=== PATIENT | female | born 1985 | race Caucasian/White ===

== ENCOUNTER → 2024-12-01 | Outpatient (BNVA) | payer MEDICARE, MEDICAID, SELFPAY | END | disposition home or self-care (01) | PROVIDERS: PCP Nurse Practitioner Family; Referring Provider Nurse Practitioner Family; Visit Provider Urology | DX: G89.4 Chronic pain syndrome (principal); N39.3 Stress incontinence (female) (male); R35.0 Frequency of micturition; R30.0 Dysuria | CPT/HCPCS: 81003; 99212; G0463 ==

== ENCOUNTER 2024-12-02 10:31 | Emergency (ER) | payer MEDICARE, MEDICAID, SELFPAY ==
[2024-12-02 10:32] VITALS: BMI 32.6
[2024-12-02 10:56] VITALS: BP 135/91; PULSE 97; RESP 20; TEMP 36.4; O2SAT 97; BMI 32.6
--- NOTE | 2024-12-02 10:57 | XR_ITS ---
Examination: PA lateral chest 2 views TECHNIQUE: Upright PA lateral chest 2 views Exam date and time: December 02, 2024 1132 hours INDICATIONS: Chest pain and cardiac palpitations beginning 2 days ago. FINDINGS: Normal heart size. Lungs are clear. Mild osteopenia IMPRESSION: No active disease
--- NOTE | 2024-12-02 10:57 | EKG_ITS ---
[facility] Test Date: 2024-12-02 Pat Name: GRADY LEO Department: Room: - Gender: Female Employee Development Manager: : 1985 Requested By: Ivan Herring Order Number: [id number] Reading MD: Ivan Herring Measurements Intervals [place] Rate: 95 P: 55 FL: 124 QRS: 44 QRSD: 88 T: 34 QT: 341 QTc: 429 Interpretive Statements SINUS RHYTHM NONSPECIFIC T-WAVE ABNORMALITY Compared to ECG 10/04/2023 09:14:52 T-wave abnormality now present Sinus bradycardia no longer present Sinus arrhythmia no longer present Short FL interval no longer present /store/S0/[id number]/ecg/[id number].pdf
--- NOTE | 2024-12-02 10:57 | PD.EDRME ---
Rapid Medical Screening Exam E Arrival date/time: 12/02/24 10:31 39-year-old female with a history of anxiety presents to the emergency room with a chief complaint of palpitations and 6 out of 10 sternal chest tightness x 1 day. I have greeted and performed a focused initial assessment of this patient. A comprehensive ED assessment and evaluation of the patient, analysis of all test results, and completion of the medical decision making process will be conducted by additional ED providers. Chief Complaint: Arrhythmia/Palpitations Vital signs: Vital Signs Temperature 97.6 F 12/02/24 10:56 Pulse Rate 97 12/02/24 10:56 Respiratory Rate 20 12/02/24 10:56 Blood Pressure 135/91 H 12/02/24 10:56 Pulse Oximetry (%) 97 12/02/24 10:56 Oxygen Delivery Method Room Air 12/02/24 10:56 Vital signs reviewed by provider: Yes
[2024-12-02 11:26] LABS: Basophils # (Auto) 0.1 Thou/mm3 (0.0-0.2); Basophils % (Auto) 0 % (0-2.5); Eosinophils # (Auto) 0.3 Thou/mm3 (0.0-0.5); Eosinophils % (Auto) 2 % (0-10); Hematocrit 46.2 % (36.0-46.0); Immature Granulocytes % (Auto) 0 % (0-0); Immature Granulocytes Auto 0.03 Thou/mm3 (0.00-0.00); Lymphocytes # (Auto) 4.2 Thou/mm3 (1.0-4.8); Lymphocytes % (Auto) 29 % (10-50); Mean Corpuscular HGB Conc 34.6 g/dl (31.0-37.0); Mean Corpuscular Hemoglobin 29.6 pg (25.0-35.0); Mean Corpuscular Volume 85 fL (80-100); Monocytes # (Auto) 1.3 Thou/mm3 (0.0-0.8); Monocytes % (Auto) 9 % (0-12); Neutrophils # (Auto) 8.5 Thou/mm3 (1.8-7.7); Neutrophils % (Auto) 59 % (37-80); Nucleated Red Blood Cell % 0 /100 WBC (0); Platelet Count 280 Thou/mm3 (140-440); RDW Standard Deviation 37.2 fL (36.4-46.3); Red Blood Count 5.41 Miln/mm3 (4.00-5.20); White Blood Count 14.4 Thou/mm3 (3.6-11.0)
[2024-12-02 11:44] LABS: Collection Type, Urine Clean Catch
[2024-12-02 11:48] LABS: Bilirubin,Urine Negative (Negative); Blood,Urine Negative (Negative); Clarity,Urine Clear (Clear/Hazy); Color,Urine Lt-Yellow (Lt Yel-Yel); Glucose, Urine Negative (Negative); Ketones,Urine Negative (Negative); Leukocyte Esterase,Urine Negative (Negative); Nitrite,Urine Negative (Negative); Protein,Urine Negative (Neg - Trace); RBC,Urine < 1 /hpf (0-3); Specific Gravity,Urine 1.011 (1.001-1.035); Squamous Epithelial Cell,Urine < 1 /hpf (0-5); Urobilinogen,Urine Negative mg/dL (0.0-1.0); WBC,Urine 1 /hpf (0-5)
[2024-12-02 11:49] LABS: Alanine Aminotransferase 22 U/L (10-49); Albumin, Serum 4.5 gm/dL (3.5-5.0); Albumin/Globulin Ratio 1.6 (1.2-2.2); Alkaline Phosphatase 102 U/L (46-116); Anion Gap 10 (7-16); Aspartate Amino Transferase 17 U/L (0-34); BUN/Creatinine Ratio 12 Ratio (12-20); Bilirubin,Total 0.5 mg/dL (0.3-1.2); Blood Urea Nitrogen 11 mg/dL (9-23); Calcium 9.4 mg/dL (8.3-10.6); Calcium (Corrected) 9.4 mg/dL (8.5-10.1); Carbon Dioxide 24.5 mMol/L (20.0-31.0); Chloride 104 mMol/L (98-107); Creatinine (Component) 0.9 mg/dL (0.6-1.3); Estimated Creatinine Clearance 102.5 mL/min (>60); Globulin 2.8 gm/dL (2.3-3.5); Glucose 114 mg/dL (74-106); Magnesium 1.9 mg/dL (1.6-2.6); Osmolality,Calculated 276 (275-295); Potassium 3.8 mMol/L (3.4-5.1); Sodium 138 mMol/L (136-145); Total Protein 7.3 gm/dL (5.7-8.2); Troponin I < 0.002 ng/mL (0.0-0.045); eGFR > 60 See Note
[2024-12-02 12:02] LABS: B-Type Natriuretic Peptide < 20 pg/mL (0-100)
[2024-12-02 12:02] LABS: Amphetamine/Methamp Scrn,U Negative (Negative); Barbiturate Screen,Urine Negative (Negative); Benzodiazepines Screen,Urine Negative (Negative); Benzoylecgonine Screen, Ur Negative (Negative); Fentanyl Screen,Urine Negative (Negative); Opiate Screen,Urine Positive (Negative); THC Screen,Urine Positive (Negative)
--- NOTE | 2024-12-02 14:38 | PD.EDADULT ---
ED General RME/HPI General Chief complaint: Arrhythmia/Palpitations Stated complaint: HEART POUNDING Time Seen by Provider: 12/02/24 13:56 Arrival date/time: 12/02/24 10:31 RME / HPI RME / HPI narrative: 39-year-old female patient with significant history of migraine headache, came in for evaluation regarding heart pounding. Patient's been having chest pain, palpitation, and described as heart pounding for the last 2 days, it comes and goes, severity mild. Patient denies any cough denies any shortness of breath denies any fever denies any other complaints. No medication was taken prior to arrival Related Data Home Medications ?Medication ?Instructions ?Recorded ?Confirmed omeprazole 40 mg capsule,delayed 40 mg PO QDAY 05/24/22 12/01/24 release prazosin 5 mg capsule 5 mg PO QHS 05/24/22 12/01/24 acetaminophen 300 mg-codeine 30 mg 1 tab PO BID PRN 11/11/23 12/01/24 tablet lasmiditan 50 mg tablet (Reyvow) 50 mg PO .PRN 11/11/23 12/01/24 spironolactone 50 mg tablet 50 mg PO QDAY 11/11/23 12/01/24 trifluoperazine 10 mg tablet 10 mg PO BID 11/11/23 12/01/24 vibegron 75 mg tablet (Gemtesa) 75 mg PO QDAY 11/11/23 12/01/24 zonisamide 100 mg capsule 100 mg PO TID 11/11/23 12/01/24 Previous Rx's ?Medication ?Instructions ?Recorded metoclopramide HCl 10 mg tablet 10 mg PO Q6H PRN nausea and 10/04/23 (Reglan) vomiting #20 tabs sucralfate 100 mg/mL oral 10 ml PO BID #200 mL 10/04/23 suspension (Carafate) Allergies Allergy/AdvReac Type Severity Reaction Status Date / Time chocolate flavor Allergy Severe Migraine Verified 12/02/24 10:34 Review of Systems Review of Systems Narrative Review of Systems: Review of system reviewed and within normal limits except mentioned in HPI ED Exam Narrative Physical exam: VITAL SIGNS: Reviewed. GENERAL APPEARANCE: Alert and interactive, follows commands, no acute distress, HEAD AND FACE: Non-traumatic. ENT: PERRL, pink conjunctivitis, eyelid no trauma, Mucous membrane moist. NECK: Supple, nontender, no nuchal rigidity. CHEST: No tenderness, no crepitus, no paradoxical movement, no retractions. LUNGS: Clear, well ventilated, symmetric, no rales, no wheezing, no ronchi, no stridor, good breath sounds bilaterally. HEART: Regular rate, regular rhythm, no murmur, no gallops. ABDOMEN: Soft, positive bowel sounds, nondistended, no guarding, nontender, no rebound, no masses, RECTAL: Deferred. GENITAL: Deferred. NEUROLOGICAL: Gross motor function intact sensory function intact, Appropriate for age. MUSCULOSKELETAL: low back nontender, full range of motion. EXTREMITIES: Nontender, full range of motion. SKIN: Color pink, dry, no rash, no lacerations, no abrasions, no contusions. LYMPHATICS: Deferred. Course Quality Measures none Orders Category Date Time Status Bedside Influenza A&B Antigen Test NOW Care 12/02/24 10:57 Active EKG (ED ONLY) *Do not use* NOW Care 12/02/24 10:57 Completed EKG (ED Only) Stat Exams 12/02/24 10:57 Draft XR chest 2V Stat Exams 12/02/24 10:57 Completed B-Type Natriuretic Peptide Stat Lab 12/02/24 11:09 Completed CBC Stat Lab 12/02/24 11:09 Completed Comprehensive Metabolic Panel Stat Lab 12/02/24 11:09 Completed Drug Screen,Urine Stat Lab 12/02/24 11:24 Completed Magnesium Stat Lab 12/02/24 11:09 Completed Troponin I Stat Lab 12/02/24 11:09 Completed Urinalysis Stat Lab 12/02/24 11:25 Completed Vital Signs Vital signs: Vital Signs Temperature 97.6 F 12/02/24 10:56 Pulse Rate 97 12/02/24 10:56 Respiratory Rate 20 12/02/24 10:56 Blood Pressure 135/91 H 12/02/24 10:56 Pulse Oximetry (%) 97 12/02/24 10:56 Oxygen Delivery Method Room Air 12/02/24 10:56 [facility] Patient data External records reviewed:: None Clinical information provided by:: none Social determinants that could affect healthcare access:: none Patient has the following chronic illnesses:: Migraine headache How is presenting disease/condition affected by chronic disease/condition?: uneffected by Evaluation data The following diagnostics were reviewed and interpreted by me:: lab results, radiology exam(s) and EKG tracing(s) Lab and/or radiology exams considered but not ordered:: Plan Interpretation Summary: She resulted in the Medications Medications considered but not ordered:: None Medication administrations:: None Consultations Consultation(s) initiated? (list below): No Diagnosis Differential Diagnosis ED Complaint MDM: ACS, chest pain, palpitation Most likely diagnosis given after review of the tests above:: Chest pain, palpitation Admission Indicated Admission indicated?: not indicated Explain why admission is indicated or not indicated:: Stable Admission Request Was there a request for admission?: No Disposition Plan Disposition Plan: Discharge Discharge Attestation Discharge Attestation: The patient was given an opportunity to ask questions and understood the discharge instructions. Discharge instructions specifically effects, indications for sooner follow up or return to the emergency department, and the expected course of current diagnosis. Patient condition: Stable Medical Decision Making MDM Narrative MDM Narrative: 39-year-old female patient with significant history of migraine headache, came in for evaluation regarding heart pounding. Patient's been having chest pain, palpitation, and described as heart pounding for the last 2 days, it comes and goes, severity mild. Patient denies any cough denies any shortness of breath denies any fever denies any other complaints. No medication was taken prior to arrival Patient's cardiac workup, including EKG and troponin all came back unremarkable. Chest x-ray also came back normal. EKG showed interpreted by me sinus rhythm, ventricular rate of 95 bpm, no ST segment elevation or depression noted. Patient told me that her chest pounding is totally gone prior to discharge. Differential Diagnosis Differential Diagnosis: ACS, chest pain, palpitation Lab Data 12/02/24 11:09 12/02/24 11:09 Labs: Lab Results 12/02/24 12/02/24 12/02/24 Range/Units 11:09 11:24 11: WBC 14.4 H (3.6-11.0) Thou/mm3 RBC 5.41 H (4.00-5.20) Miln/mm3 Hgb 16.0 (12.0-16.0) g/dL Hct 46.2 H (36.0-46.0) % MCV 85 (80-100) fL MCH 29.6 (25.0-35.0) pg MCHC 34.6 (31.0-37.0) g/dl RDW Std Deviation 37.2 (36.4-46.3) fL Plt Count 280 (140-440) Thou/mm3 Neut % (Auto) 59 (37-80) % Lymph % (Auto) 29 (10-50) % Phillips % (Auto) 9 (0-12) % Eos % (Auto) 2 (0-10) % Baso % (Auto) 0 (0-2.5) % Neut # (Auto) 8.5 H (1.8-7.7) Thou/mm3 Lymph # (Auto) 4.2 (1.0-4.8) Thou/mm3 Phillips # (Auto) 1.3 H (0.0-0.8) Thou/mm3 Eos # (Auto) 0.3 (0.0-0.5) Thou/mm3 Baso # (Auto) 0.1 (0.0-0.2) Thou/mm3 Immature Gran # (Auto) 0.03 H (0.00-0.00) Thou/mm3 Absolute Nucleated RBC 0.00 (0.00-0.00) Thou/mm3 Immature Gran % 0 (0-0) % Nucleated RBC % 0 (0) /100 WBC Sodium 138 (136-145) mMol/L Potassium 3.8 (3.4-5.1) mMol/L Chloride 104 (98-107) mMol/L Carbon Dioxide 24.5 (20.0-31.0) mMol/L Anion Gap 10 (7-16) BUN 11 (9-23) mg/dL Creatinine 0.9 (0.6-1.3) mg/dL Estim Creat Clear Calc 102.5 (>60) mL/min eGFR > 60 (60 - ) See Note BUN/Creatinine Ratio 12 (12-20) Ratio Glucose 114 H (74-106) mg/dL Calculated Osmolality 276 (275-295) Calcium 9.4 (8.3-10.6) mg/dL Corrected Calcium 9.4 (8.5-10.1) mg/dL Magnesium 1.9 (1.6-2.6) mg/dL Total Bilirubin 0.5 (0.3-1.2) mg/dL AST 17 (0-34) U/L ALT 22 (10-49) U/L Alkaline Phosphatase 102 (46-116) U/L Troponin I < 0.002 (0.0-0.045) ng/mL B-Natriuretic Peptide < 20 (0-100) pg/mL Total Protein 7.3 (5.7-8.2) gm/dL Albumin 4.5 (3.5-5.0) gm/dL Globulin 2.8 (2.3-3.5) gm/dL Albumin/Globulin Ratio 1.6 (1.2-2.2) Ur Collection Type Clean Catch Urine Color Lt-Yellow (Lt Yel-Yel) Urine Clarity Clear (Clear/Hazy) Urine pH 6.0 (5.0-7.0) Ur Specific [place] 1.011 (1.001-1.035) Urine Protein Negative (Neg - Trace) Urine Glucose (UA) Negative (Negative) Urine Ketones Negative (Negative) Urine Blood Negative (Negative) Urine Nitrite Negative (Negative) Urine Bilirubin Negative (Negative) Urine Urobilinogen (Auto) Negative (0.0-1.0) mg/dL Ur Leukocyte Esterase Negative (Negative) Urine RBC < 1 (0-3) /hpf Urine WBC 1 (0-5) /hpf Ur Squamous Epith Cells < 1 (0-5) /hpf Urine Bacteria None (None) Urine Opiates Screen Positive A (Negative) Urine Fentanyl Screen Negative (Negative) Ur Barbiturates Screen Negative (Negative) U Amphetamin/Meth Scrn Negative (Negative) U Benzodiazepines Scrn Negative (Negative) U Cocaine Metab Screen Negative (Negative) U Marijuana (THC) Screen Positive A (Negative) Discharge Plan Plan Patient Disposition: HOME (Self Care) Disposition Comment: Stable Prescriptions/Referrals Prescriptions/Med Rec: No Action prazosin 5 mg capsule 5 mg PO QHS omeprazole 40 mg capsule,delayed release(DR/EC) 40 mg PO QDAY Gemtesa 75 mg tablet 75 mg PO QDAY zonisamide 100 mg capsule 100 mg PO TID acetaminophen-codeine 300-30 mg tablet 1 tab PO BID PRN Reyvow 50 mg tablet 50 mg PO .PRN spironolactone 50 mg tablet 50 mg PO QDAY trifluoperazine 10 mg tablet 10 mg PO BID metoclopramide HCl [Reglan] 10 mg tablet 10 mg PO Q6H PRN (Reason: nausea and vomiting) Qty: 20 0RF sucralfate [Carafate] 100 mg/mL suspension 10 ml PO BID Qty: 200 0RF Referrals: Jo Ann Oneill MD [Primary Care Provider] - In 1 week Problem List Clinical Impression: Palpitations, Chest pain Patient/Caregiver Discharge Instructions Discharge Activity: activity as tolerated Education Materials: ED Palpitations Additional Instructions: Thank you for the opportunity for serving you today. You are stable for discharged . You are advised to: Follow-up with your PCP in 1 to 2 days Return to ED for worsening of symptoms Increase oral fluids As your PCP to refer you to a coin machine collector if your symptoms persist or getting worse. Print Language: Korean Stand Alone Forms: Elaine Award Info., Patient Portal Info Letter
== END 2024-12-02 14:45 | disposition home or self-care (01) ==
PROVIDERS: Nurse Practitioner Family; Emergency Provider Emergency Medicine; PCP Internal Medicine
DX: R00.2 Palpitations (principal); R07.9 Chest pain, unspecified
CPT/HCPCS: 36415; 71046; 80053; 80307; 81001; 83735; 83880; 84484; 85025; 93005; 99283

== ENCOUNTER → 2025-01-19 | Outpatient (BNVA) | payer MEDICARE, MEDICAID, SELFPAY | END | disposition home or self-care (01) | PROVIDERS: PCP Urology; Referring Provider Urology; Visit Provider Urology | DX: N35.92 Unspecified urethral stricture, female (principal); G89.4 Chronic pain syndrome; R10.2 Pelvic and perineal pain; N32.81 Overactive bladder | CPT/HCPCS: 52281; 81003; 96372; A4217; A4649; C1894; J1580; A9270 ==

== ENCOUNTER → 2025-02-23 | Outpatient (CLI) | payer MEDICARE, MEDICAID, SELFPAY ==
--- NOTE | 2025-02-23 11:30 | XR_ITS ---
Examination: CT abdomen with intravenous contrast CT pelvis with intravenous contrast 2-D coronal reconstructions 2-D sagittal reconstructions Date and time of exam:February 23, 2025 1133 hours Comparison December 31, 2021 INDICATIONS: Pelvic pain with frequent urination 4 months. CTDI: vol (mGy) 21.5. DLP: (mGycm) 1288. Technique: Multiple axial sections of the abdomen and pelvis have been obtained. 64 slice high-resolution scanner used. 3 mm axial sections have been obtained, post intravenous injection 60 cc Isovue-370. 2-D sagittal, coronal reconstructions obtained. Low dose protocols were performed. One or more of the following dose reduction techniques were used; automated exposure control, adjustment of the mA and/or KV according to patient size, use of iterative reconstruction technique. Findings: No focal liver or splenic lesions No gallstones No pancreatic or adrenal mass. No renal or ureteral calculi, no hydronephrosis Aorta normal size No pericecal inflammatory change Atrophic uterus Mild nonspecific colitis pattern No pelvic mass No bladder mass or bladder calculi Intact osseous structures IMPRESSION: No renal or ureteral calculi, no hydronephrosis No solid renal mass lesion No bladder mass or bladder calculi Mild nonspecific colitis pattern
== END | disposition home or self-care (01) ==
LOC: CCTX 11:11
PROVIDERS: PCP Internal Medicine; Referring Provider Urology; Visit Provider Urology
DX: G89.29 Other chronic pain (principal)
CPT/HCPCS: 74177; A4649; Q9967

== ENCOUNTER 2025-03-24 12:53 | Emergency (ER) | payer MEDICARE, MEDICAID, SELFPAY ==
[2025-03-24 13:13] VITALS: BP 137/92; PULSE 73; RESP 20; TEMP 36.6; O2SAT 96; BMI 32.6
--- NOTE | 2025-03-24 13:33 | PD.EDRME ---
Rapid Medical Screening Exam RME Arrival date/time: 03/24/25 12:53 Chief Complaint: Nausea/Vomiting/Diarrhea Time Seen by Provider: 03/24/25 13:16 Vital signs: Vital Signs Temperature 98 F 03/24/25 13:13 Pulse Rate 73 03/24/25 13:13 Respiratory Rate 20 03/24/25 13:13 Blood Pressure 137/92 H 03/24/25 13:13 Pulse Oximetry (%) 96 03/24/25 13:13 Oxygen Delivery Method Room Air 03/24/25 13:13 Pulse ox room air is 96% Vital signs reviewed by provider: Yes RME Narrative: 40-year-old female presents to the ED with a complaint of cyclical vomiting syndrome and tells me that she has been vomiting nonstop for the last 2 days with diarrhea that is nonstop for the last 2 days. Also describes abdominal pain. Past medical history includes IBS.
--- NOTE | 2025-03-24 13:36 | XR_ITS ---
Examination: CT abdomen with intravenous contrast CT pelvis with intravenous contrast 2-D coronal reconstructions 2-D sagittal reconstructions Date and time of exam:March 24, 2025, 1550 hours Comparison February 23, 2025. CTDI: vol (mGy) 12.4 DLP: (mGycm) 733 Technique: Multiple axial sections of the abdomen and pelvis have been obtained. 64 slice high-resolution scanner used. 3 mm axial sections have been obtained, post intravenous injection 60 cc of Isovue-370 2-D sagittal, coronal reconstructions obtained. Low dose protocols were performed. One or more of the following dose reduction techniques were used; automated exposure control, adjustment of the mA and/or KV according to patient size, use of iterative reconstruction technique. Findings: Small retrocardiac gastric hernia No focal liver or splenic lesion Small gallstone axial image 74 No pancreatic or adrenal mass. No renal or ureteral calculi, no hydronephrosis 15 mm fat-containing umbilical hernia No pericecal inflammatory change No diverticulitis Anteverted uterus No adnexal mass Contracted urinary bladder The osseous structures are intact Fatty replacement in the mancini of the colon seen with prior episodes of colitis IMPRESSION: Recommend abdominal sonography follow-up to confirm cholelithiasis, negative for cholecystitis Negative for pancreatitis No renal or ureteral calculi, no hydronephrosis No CT findings of appendicitis bowel obstruction or diverticulitis Findings consistent with prior episodes of colitis, no current colitis depicted
[2025-03-24] MEDS: ONDANSETRON INJ 2 MG/ML INJ 2 ML 4 MG IM (13:53)
[2025-03-24 14:13] LABS: Alanine Aminotransferase 26 U/L (10-49); Albumin, Serum 5.0 gm/dL (3.5-5.0); Albumin/Globulin Ratio 1.8 (1.2-2.2); Alkaline Phosphatase 115 U/L (46-116); Anion Gap 13 (7-16); Aspartate Amino Transferase 22 U/L (0-34); BUN/Creatinine Ratio 10 Ratio (12-20); Bilirubin,Total 0.7 mg/dL (0.3-1.2); Blood Urea Nitrogen 12 mg/dL (9-23); Calcium 10.2 mg/dL (8.3-10.6); Calcium (Corrected) 10.2 mg/dL (8.5-10.1); Carbon Dioxide 19.2 mMol/L (20.0-31.0); Chloride 108 mMol/L (98-107); Creatinine (Component) 1.2 mg/dL (0.6-1.3); Estimated Creatinine Clearance 76.1 mL/min (>60); Globulin 2.8 gm/dL (2.3-3.5); Glucose 154 mg/dL (74-106); Lipase 40 U/L (12-53); Osmolality,Calculated 282 (275-295); Potassium 4.3 mMol/L (3.4-5.1); Sodium 140 mMol/L (136-145); Total Protein 7.8 gm/dL (5.7-8.2); eGFR 59 See Note
[2025-03-24 14:18] LABS: Collection Type, Urine Clean Catch
[2025-03-24 14:28] VITALS: BP 148/88; PULSE 58; RESP 18; O2SAT 99
[2025-03-24 14:33] LABS: HCG Qualitative,Urine Negative
[2025-03-24] MEDS: KETOROLAC INJ 30 MG/ML VIAL IVP (14:33)
[2025-03-24 14:36] LABS: Bilirubin,Urine Negative (Negative); Blood,Urine Negative (Negative); Color,Urine Yellow (Lt Yel-Yel); Glucose, Urine Negative (Negative); Ketones,Urine 3+ (Negative); Leukocyte Esterase,Urine Negative (Negative); Nitrite,Urine Negative (Negative); PH,Urine 5.5 (5.0-7.0); Protein,Urine 1+ (Neg - Trace); RBC,Urine 4 /hpf (0-3); Specific Gravity,Urine 1.035 (1.001-1.035); Squamous Epithelial Cell,Urine 2 /hpf (0-5); Urobilinogen,Urine Negative mg/dL (0.0-1.0); WBC,Urine 1 /hpf (0-5)
[2025-03-24 14:41] LABS: Clarity,Urine Hazy (Clear/Hazy)
[2025-03-24 14:45] VITALS: BP 148/88; PULSE 59; RESP 18; TEMP 36.8; O2SAT 99
[2025-03-24] MEDS: SODIUM CHLORIDE 0.9% 1000 ML 1,000 ML 999 ML IV ×3 (14:49→18:26)
[2025-03-24 14:50] LABS: Basophils # (Auto) 0.1 Thou/mm3 (0.0-0.2); Basophils % (Auto) 1 % (0-2.5); Eosinophils # (Auto) 0.1 Thou/mm3 (0.0-0.5); Eosinophils % (Auto) 1 % (0-10); Hematocrit 53.1 % (36.0-46.0); Hemoglobin 18.7 g/dL (12.0-16.0); Immature Granulocytes Auto 0.07 Thou/mm3 (0.00-0.00); Lymphocytes # (Auto) 2.2 Thou/mm3 (1.0-4.8); Lymphocytes % (Auto) 12 % (10-50); Mean Corpuscular HGB Conc 35.2 g/dl (31.0-37.0); Mean Corpuscular Hemoglobin 29.5 pg (25.0-35.0); Mean Corpuscular Volume 84 fL (80-100); Monocytes # (Auto) 0.7 Thou/mm3 (0.0-0.8); Monocytes % (Auto) 4 % (0-12); Neutrophils # (Auto) 14.1 Thou/mm3 (1.8-7.7); Neutrophils % (Auto) 82 % (37-80); Nucleated Red Blood Cell # 0.00 Thou/mm3 (0.00-0.00); Nucleated Red Blood Cell % 0 /100 WBC (0); Platelet Count 287 Thou/mm3 (140-440); RDW Standard Deviation 37.2 fL (36.4-46.3); Red Blood Count 6.33 Miln/mm3 (4.00-5.20); White Blood Count 17.3 Thou/mm3 (3.6-11.0)
[2025-03-24 14:57] LABS: Amphetamine/Methamp Scrn,U Negative (Negative); Barbiturate Screen,Urine Negative (Negative); Benzodiazepines Screen,Urine Negative (Negative); Benzoylecgonine Screen, Ur Negative (Negative); Fentanyl Screen,Urine Negative (Negative); Opiate Screen,Urine Positive (Negative); THC Screen,Urine Positive (Negative)
--- NOTE | 2025-03-24 14:58 | PD.EDNV ---
Nausea/Vomit./Diarrhea-RME/HPI General Chief complaint: Nausea/Vomiting/Diarrhea Stated complaint: Vomiting X 2 days, diarrhea X 3 days Time Seen by Provider: 03/24/25 13:16 Arrival date/time: 03/24/25 12:53 RME / HPI RME / HPI Narrative: 40-year-old female presents to the ED with a complaint of cyclical vomiting syndrome and tells me that she has been vomiting nonstop for the last 2 days with diarrhea that is nonstop for the last 2 days. Also describes abdominal pain. Past medical history includes IBS. DR. RIOS MAIN ED EVALUATION 40 year old female presents to the ED for evaluation of nausea, nonbloody vomiting, and nonbloody diarrhea beginning 2 days ago. Accompanied by epigastric abdominal pain, described as aching in sensation, rating as moderate. Additionally complains of a headache similar to previous migraine headaches. Denies any sick contacts with similar symptoms. Denies fevers, chills, sweats. Denies chest pain, cough, shortness of breath. Denies dysuria, urinary frequency and urgency. Related Data Home Medications ?Medication ?Instructions ?Recorded ?Confirmed omeprazole 40 mg capsule,delayed 40 mg PO QDAY 05/24/22 01/19/25 release prazosin 5 mg capsule 5 mg PO QHS 05/24/22 01/19/25 acetaminophen 300 mg-codeine 30 mg 1 tab PO BID PRN 11/11/23 01/19/25 tablet lasmiditan 50 mg tablet (Reyvow) 50 mg PO .PRN 11/11/23 01/19/25 spironolactone 50 mg tablet 50 mg PO QDAY 11/11/23 01/19/25 trifluoperazine 10 mg tablet 10 mg PO BID 11/11/23 01/19/25 zonisamide 100 mg capsule 100 mg PO TID 11/11/23 01/19/25 mirabegron 50 mg tablet,extended 50 mg PO QDAY 01/19/25 01/19/25 release 24 hr (Myrbetriq) Previous Rx's ?Medication ?Instructions ?Recorded metoclopramide HCl 10 mg tablet 10 mg PO Q6H PRN nausea and 10/04/23 (Reglan) vomiting #20 tabs sucralfate 100 mg/mL oral 10 ml PO BID #200 mL 10/04/23 suspension (Carafate) acetaminophen 300 mg-codeine 30 mg 2 tab PO Q8H PRN pain #20 tabs 03/24/25 tablet famotidine 40 mg tablet 40 mg PO .bedtime #30 tabs 03/24/25 omeprazole 40 mg capsule,delayed 40 mg PO QDAY #30 caps 03/24/25 release ondansetron 4 mg disintegrating 4 mg PO TID PRN nausea and 03/24/25 tablet vomiting 30 days #10 tabs Allergies Allergy/AdvReac Type Severity Reaction Status Date / Time chocolate flavor Allergy Severe Migraine Verified 03/24/25 12:57 Review of Systems Review of Systems Systems Reviewed: All systems reviewed, normal except as documented Past Medical History Past Medical History NEUROLOGIC: Positive Migraine; Negative Seizures CARDIAC: Negative Cardiac Disorders or Congestive Heart Failure RESPIRATORY: Negative Chronic Obstructive Pulmonary Disease (COPD) or Asthma GASTROINTESTINAL: Positive Irritable Bowel GENITOURINARY: Negative Renal Disease ENDOCRINE: Negative Diabetes Mellitus Type 1 or Diabetes Mellitus Type 2 HEMATOLOGIC: Negative Sickle Cell Disease PSYCHO/SOCIAL: Positive Schizophrenia and Depression Surgical History SURGICAL: Positive Tubal Ligation Social History SMOKING STATUS: Never smoker SUBSTANCE USE: marijuana (smokes regularly) ED Exam Narrative Physical exam: GENERAL APPEARANCE: alert and oriented x 4, well-developed, well-nourished, no acute distress HEENT: Normocephalic, atraumatic; pupils equal, round, reactive to light; EOMI; mucous membranes pink, moist; oropharynx clear NECK: Supple LUNGS: CTABL; no wheezes, no rales, no rhonchi HEART: Regular rate, regular rhythm; normal S1, S2; no murmurs ABDOMEN: non distended; normal BS; soft, mild diffuse tenderness, no guarding, no rebound; no masses, no organomegaly, no hernia BACK: no CVA tenderness EXTREMITIES: atraumatic; no edema NEUROLOGIC: awake; alert and oriented x4; cranial nerves II-XII grossly intact; no focal sensory or motor deficits PSYCHIATRIC: appropriate mood and affect SKIN: warm, dry, normal color; no rashes Course Course Course Narrative: 1744: Patient is retching. Was given Haldol at 16:28 and had been sleeping until now. 1800: Signed out to Dr. Barrow pending additional antiemetics, reassessment and final disposition. Quality Measures none Orders Category Date Time Status CT Screening NOW Care 03/24/25 13:[address] Screening X1 Care 03/24/25 13:36 Completed EKG (ED ONLY) *Do not use* NOW Care 03/24/25 19:[address] abdomen pelvis w con Stat Exams 03/24/25 13:36 Completed EKG (ED Only) Stat Exams 03/24/25 19:30 Draft US gall bladder Stat Exams 03/24/25 18:13 Completed BNP [B-Type Natriuretic Peptide] Stat Lab 03/24/25 13:41 Completed Bilirubin,Direct Stat Lab 03/24/25 20:37 Completed CBC Stat Lab 03/24/25 13:41 Completed Comprehensive Metabolic Panel Stat Lab 03/24/25 13:41 Completed Drug Screen,Urine Stat Lab 03/24/25 14:11 Completed Free T4 (Free Thyroxine) Stat Lab 03/24/25 20:37 Completed HCG Qualitative,Urine Stat Lab 03/24/25 14:11 Completed Lipase Stat Lab 03/24/25 13:41 Completed Magnesium Stat Lab 03/24/25 20:37 Completed TSH [Thyroid Stimulating Hormone] Stat Lab 03/24/25 20:37 Completed Troponin I Stat Lab 03/24/25 20:37 Completed Urinalysis Stat Lab 03/24/25 14:11 Completed HYDROmorphone INJ [Dilaudid Inj] Med 03/24/25 18:50 Discontinued 1 mg IVP X1 ONE Haloperidol Lactate [Haldol Inj] Med 03/24/25 16:07 Discontinued 5 mg IM X1 ONE Ketorolac Inj [Toradol Inj] Med 03/24/25 13:36 Discontinued 30 mg IVP X1 ONE Metoclopramide Inj [Reglan Inj] Med 03/24/25 18:11 Discontinued 10 mg IVP Q8HR STA Ondansetron Inj [Zofran Inj] Med 03/24/25 13:35 Discontinued 4 mg IM X1 ONE Ondansetron Inj [Zofran Inj] Med 03/24/25 18:11 Discontinued 4 mg IVP X1 ONE Sodium Chloride 0.9% 1000 ml [Ns] 1,000 ml Med 03/24/25 14:43 Discontinued IV 999 mls/hr Sodium Chloride 0.9% 1000 ml [Ns] 1,000 ml Med 03/24/25 16:08 Discontinued IV 999 mls/hr Sodium Chloride 0.9% 1000 ml [Ns] 1,000 ml Med 03/24/25 18:11 Discontinued IV 999 mls/hr Vital Signs Vital signs: Vital Signs Temperature 98 F 03/24/25 13:13 Pulse Rate 73 03/24/25 13:13 Respiratory Rate 20 03/24/25 13:13 Blood Pressure 137/92 H 03/24/25 13:13 Pulse Oximetry (%) 96 03/24/25 13:13 Oxygen Delivery Method Room Air 03/24/25 13:13 Pulse ox is 96% on room air which is adequate. Nausea/Vomiting/Diarrhea MDM Narrative MDM Narrative:: Constance Maya am scribing for and in the presence of Dr. Rios. Patient data External records reviewed:: [facility] previous records (I reviewed ED visit on 12/02/2024 ) Clinical information provided by:: patient Social determinants that could affect healthcare access:: substance use (Marijuana ) Patient has the following chronic illnesses:: History of migraine headaches How is presenting disease/condition affected by chronic disease/condition?: exacerbated by Evaluation data The following diagnostics were reviewed and interpreted by me:: lab results and radiology exam(s) Lab and/or radiology exams considered but not ordered:: None Interpretation Summary: Ordering Physician: Ezequiel Guerrero PA-C Date of Service: 03/24/25 Procedure(s): CT abdomen pelvis w con Accession Number(s): [id number] cc: Mai([facility])Jo Ann MD; Ryan Guzman MD; Ezequiel Guerrero PA-C~ Examination: CT abdomen with intravenous contrast CT pelvis with intravenous contrast 2-D coronal reconstructions 2-D sagittal reconstructions Date and time of exam:March 24, 2025, 1550 hours Comparison February 23, 2025. CTDI: vol (mGy) 12.4 DLP: (mGycm) 733 Technique: Multiple axial sections of the abdomen and pelvis have been obtained. 64 slice high-resolution scanner used. 3 mm axial sections have been obtained, post intravenous injection 60 cc of Isovue-370 2-D sagittal, coronal reconstructions obtained. Low dose protocols were performed. One or more of the following dose reduction techniques were used; automated exposure control, adjustment of the mA and/or KV according to patient size, use of iterative reconstruction technique. Findings: Small retrocardiac gastric hernia No focal liver or splenic lesion Small gallstone axial image 74 No pancreatic or adrenal mass. No renal or ureteral calculi, no hydronephrosis 15 mm fat-containing umbilical hernia No pericecal inflammatory change No diverticulitis Anteverted uterus No adnexal mass Contracted urinary bladder The osseous structures are intact Fatty replacement in the mancini of the colon seen with prior episodes of colitis IMPRESSION: Recommend abdominal sonography follow-up to confirm cholelithiasis, negative for cholecystitis Negative for pancreatitis No renal or ureteral calculi, no hydronephrosis No CT findings of appendicitis bowel obstruction or diverticulitis Findings consistent with prior episodes of colitis, no current colitis depicted Dictated By: Ryan Guzman MD Signed By: <Electronically signed by Ryan Guzman MD in OV> 03/24/25 1644 Medications / Prescriptions Medications / Prescriptions considered but not ordered:: None Medication administrations:: Medication Administration History Discontinued Medications Haloperidol Lactate (Haloperidol Lact Inj 5 Mg/Ml Vial) 5 mg IM X1 ONE Stop: 03/24/25 16:08 Last Admin: 03/24/25 16:28 Dose: 5 mg Documented By: EF Hydromorphone HCl (Hydromorphone Inj 2 Mg/Ml Vial) 1 mg IVP X1 ONE Stop: 03/24/25 18:51 Last Admin: 03/24/25 19:06 Dose: 1 mg Documented By: EF Sodium Chloride (Ns) 1,000 mls @ 999 mls/hr IV .Q1H1M ONE Stop: 03/24/25 15:43 Last Infusion: 03/24/25 15:50 Dose: Infused Documented By: Admin: 03/24/25 14:49 Dose: 999 mls/hr Documented By: EF Sodium Chloride (Ns) 1,000 mls @ 999 mls/hr IV .Q1H1M ONE Stop: 03/24/25 17:08 Last Infusion: 03/24/25 17:29 Dose: Infused Documented By: Admin: 03/24/25 16:28 Dose: 999 mls/hr Documented By: EF Sodium Chloride (Ns) 1,000 mls @ 999 mls/hr IV .Q1H1M ONE Stop: 03/24/25 19:11 Last Infusion: 03/24/25 19:27 Dose: Infused Documented By: Admin: 03/24/25 18:26 Dose: 999 mls/hr Documented By: EF Ketorolac Tromethamine (Ketorolac Inj 30 Mg/Ml Vial) 30 mg IVP X1 ONE Stop: 03/24/25 13:37 Last Admin: 03/24/25 14:33 Dose: 30 mg Documented By: EF Metoclopramide HCl (Metoclopramide Inj 5 Mg/Ml Vial 2 Ml) 10 mg IVP Q8HR STA; Protocol Stop: 03/24/25 18:12 Last Admin: 03/24/25 18:26 Dose: 10 mg Documented By: EF Ondansetron HCl (Ondansetron Inj 2 Mg/Ml Inj 2 Ml) 4 mg IM X1 ONE; Protocol Stop: 03/24/25 13:36 Last Admin: 03/24/25 13:53 Dose: 4 mg Documented By: LUIS Ondansetron HCl (Ondansetron Inj 2 Mg/Ml Inj 2 Ml) 4 mg IVP X1 ONE; Protocol Stop: 03/24/25 18:12 Last Admin: 03/24/25 18:26 Dose: 4 mg Documented By: EF See above Consultations Consultation(s) initiated? (list below): No Diagnosis Nausea Differential Diagnosis: food poisoning, gastroenteritis, drug-induced nausea and vomiting, dehydration and other (cannabinoid hyperemesis syndrome ) Most likely diagnosis given after review of the tests above:: Nausea and vomiting Admission Indicated Admission indicated?: not indicated Explain why admission is indicated or not indicated:: Signed out to Dr. Barrow pending reassessment. Admission Request Was there a request for admission?: No Disposition Plan Disposition Plan: other (specify) (Signed out to Dr. Barrow ) Discharge Plan Plan Patient Disposition: HOME (Self Care) Prescriptions/Referrals Prescriptions/Med Rec: New famotidine 40 mg tablet 40 mg PO .bedtime Qty: 30 0RF acetaminophen-codeine 300-30 mg tablet 2 tab PO Q8H MDD 6 PRN (Reason: pain) Qty: 20 0RF omeprazole 40 mg capsule,delayed release(DR/EC) 40 mg PO QDAY Qty: 30 0RF ondansetron 4 mg tablet,disintegrating 4 mg PO TID PRN (Reason: nausea and vomiting) 30 Days Qty: 10 0RF No Action prazosin 5 mg capsule 5 mg PO QHS omeprazole 40 mg capsule,delayed release(DR/EC) 40 mg PO QDAY zonisamide 100 mg capsule 100 mg PO TID acetaminophen-codeine 300-30 mg tablet 1 tab PO BID PRN Reyvow 50 mg tablet 50 mg PO .PRN spironolactone 50 mg tablet 50 mg PO QDAY trifluoperazine 10 mg tablet 10 mg PO BID mirabegron [Myrbetriq] 50 mg tablet extended release 24 hr 50 mg PO QDAY metoclopramide HCl [Reglan] 10 mg tablet 10 mg PO Q6H PRN (Reason: nausea and vomiting) Qty: 20 0RF sucralfate [Carafate] 100 mg/mL suspension 10 ml PO BID Qty: 200 0RF Referrals: Mai([facility]),MD Jo Ann [Primary Care Provider] - In 1 week Problem List Clinical Impression: Abdominal pain Patient/Caregiver Discharge Instructions Print Language: Divehi
[2025-03-24 16:09] VITALS: BP 152/88; PULSE 83; RESP 18; TEMP 36.9; O2SAT 99
[2025-03-24] MEDS: HALOPERIDOL LACT INJ 5 MG/ML VIAL IM (16:28)
[2025-03-24 17:56] VITALS: BP 137/82; PULSE 78; RESP 18; TEMP 36.9; O2SAT 96
--- NOTE | 2025-03-24 18:05 | PD.EDADDENDU ---
Emergency Room Addendum <Yaz Rivera - Last Filed: 03/24/25 21:21> Addendum Narrative: I took over the care from previous shift physician at 6 PM on 03/24/2025. See previous notes for complete H & P and ED course. I reviewed all diagnostic test results. My interpretation of the EKG is: Sinus rhythm (95 bpm) with nonspecific ST-T changes. Jr Barrow MD My review of the Gall Bladder US report is NAD. My review of the Abdomen/Pelvis CT report is NAD. Blood tests and urine tests Diagnoses include: Stomach ulcer. Treatment here included IVF, Zofran 4 mg, Reglan 10 mg, Haldol 5 mg, Toradol 30 mg, Dilaudid 1 mg. Based on my best medical judgment, made decision no further evaluation or treatment indicated at this time. Patient understands and agrees to the discharge instructions customized and printed, see below. Discharge instructions from Dr. Barrow: ?After evaluation, your symptoms are due to stomach ulcer (see attached handout). There is no emergency such as appendicitis needing emergent surgery. ?To help heal the ulcer, take Omeprazole 40 mg every morning and Famotidine 40 mg at bedtime for a week then as needed. ?Zofran for nausea/vomiting. Clear liquid diet for 24 hours. Then slowly advance diet as tolerated. ?Avoid food and beverages that can trigger and worsen ulcers. See attached handout. --Tylenol with codeine for severe pain. --Avoid marijuana use which can cause psychosis severe vomiting. ?See a private doctor on 03/25/2025 for recheck and further care. To make sure there is no serious intra-abdominal condition, ask for help with more investigation not available here in the ER. Such as EGD or scoping the stomach, colonoscopy or scoping the colon, and referral to see violin mechanic. Ask to review all test results and official radiology reports, to make sure you receive all necessary follow-ups and monitoring. ?Seek immediate medical care with worsening or with any concerns. Jr Barrow MD <Jr Barrow MD - Last Filed: 03/24/25 21:50> Addendum Narrative: I took over the care from previous shift physician, Dr. Rios, at 6 PM on 03/24/2025. See previous notes for complete H & P and ED course. I reviewed all diagnostic test results. My interpretation of the EKG is: Sinus rhythm (95 bpm) with nonspecific ST-T changes. Jr Barrow MD My review of the Gall Bladder US report is NAD. My review of the Abdomen/Pelvis CT report is NAD. Blood tests and urine tests unremarkable. Diagnoses include: Stomach ulcer. Treatment here included IVF, Zofran 4 mg, Reglan 10 mg, Haldol 5 mg, Toradol 30 mg, Dilaudid 1 mg. Significant treatment noted. Recommended outpatient management. Based on my best medical judgment, made decision no further evaluation or treatment indicated at this time. Patient understands and agrees to the discharge instructions customized and printed, see below. Discharge instructions from Dr. Barrow: ?After evaluation, your symptoms are due to stomach ulcer (see attached handout). There is no emergency such as appendicitis needing emergent surgery. ?To help heal the ulcer, take Omeprazole 40 mg every morning and Famotidine 40 mg at bedtime for a week then as needed. ?Zofran for nausea/vomiting. Clear liquid diet for 24 hours. Then slowly advance diet as tolerated. ?Avoid food and beverages that can trigger and worsen ulcers. See attached handout. --Tylenol with codeine for severe pain. --Avoid marijuana use which can cause psychosis severe vomiting. ?See a private doctor on 03/25/2025 for recheck and further care. To make sure there is no serious intra-abdominal condition, ask for help with more investigation not available here in the ER. Such as EGD or scoping the stomach, colonoscopy or scoping the colon, and referral to see violin mechanic. Ask to review all test results and official radiology reports, to make sure you receive all necessary follow-ups and monitoring. ?Seek immediate medical care with worsening or with any concerns. Jr Barrow MD
--- NOTE | 2025-03-24 18:13 | XR_ITS ---
Examination: Abdomen sonogram, Limited Date and time of exam: March 24, 2025 2007 hours INDICATIONS: Right upper abdominal pain and tenderness beginning 2 days ago Technique: Real-time campuzano scale transabdominal sonographic images of the upper abdomen obtained. Findings: Normal gallbladder. Normal common bile duct 0.3 cm Pancreatic head 2.3 cm Liver 13.2 cm fatty infiltration no focal liver lesions Normal hepatopedal portal venous flow Patent IVC IMPRESSION: Normal gallbladder. Normal common bile duct
[2025-03-24] MEDS: ONDANSETRON INJ 2 MG/ML INJ 2 ML 4 MG IVP (18:26)
[2025-03-24] MEDS: METOCLOPRAMIDE INJ 5 MG/ML VIAL 2 ML 10 MG IVP (18:26)
[2025-03-24] MEDS: HYDROmorphone INJ 2 MG/ML VIAL 1 MG IVP (19:06)
--- NOTE | 2025-03-24 19:30 | EKG_ITS ---
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
[2025-03-24 20:30] LABS: B-Type Natriuretic Peptide < 20 pg/mL (0-100)
[2025-03-24 21:19] LABS: Bilirubin,Direct 0.1 mg/dL (0.0-0.3); Free T4 (Free Thyroxine) 1.35 ng/dL (0.89-1.76); Magnesium 1.6 mg/dL (1.6-2.6); Thyroid Stimulating Hormone 3.16 uIU/mL (0.55-4.78); Troponin I < 0.002 ng/mL (0.0-0.045)
[2025-03-24 21:31] VITALS: BP 116/75; PULSE 93; RESP 16; O2SAT 95
== END 2025-03-24 21:32 | disposition home or self-care (01) ==
PROVIDERS: Emergency Medicine; Physician Assistant; Emergency Provider Emergency Medicine; PCP Internal Medicine
DX: K25.9 Gastric ulcer, unspecified as acute or chronic, without hemorrhage or perforation (principal); R94.31 Abnormal electrocardiogram [ECG] [EKG]
CPT/HCPCS: 36415; 74177; 76705; 80053; 80307; 81001; 81025; 82248; 83690; 83735; 83880; 84439; 84443; 84484; 85025; 93005; 96361; 96374; 96375; 99284; A4649; J1171; J1630; J1885; J2405; J2765; J7030; Q9967